=== PATIENT | female | born 1960 | race African-American/Black ===

== ENCOUNTER 2019-06-10 15:34 | Emergency (ER) | payer MEDICARE ==
[2019-06-10 16:24] LABS: ABSOLUTE BASOPHILS # (AUTO) 0.1 10^3/uL (0.0-0.2); ABSOLUTE EOSINOPHILS # (AUTO) 0.2 10^3/uL (0.0-0.6); ABSOLUTE MONOCYTES (AUTO) 1.1 10^3/uL (0.1-1.4); ABSOLUTE NEUT (AUTO) 8.2 10^3/uL (1.7-8.2); BASOPHILS % (AUTO) 0.7 % (0-2); EOSINOPHILS % (AUTO) 1.3 % (0-6); HEMATOCRIT 42.1 % (36.0-47.0); HEMOGLOBIN 14.5 g/dL (12.0-15.5); LYMPHOCYTES % (AUTO) 17.1 % (13-45); MEAN CORPUSCULAR HGB CONC 34.5 g/dL (32.0-36.0); MEAN CORPUSCULAR VOLUME 87 fl (80-97); MONOCYTES % (AUTO) 9.4 % (3-13); PLATELET COUNT 353 10^3/uL (150-450); RED BLOOD COUNT 4.85 10^6/uL (3.72-5.28); RED CELL DISTRIBUTION WIDTH 13.7 % (11.5-14.0); SEGMENTED NEUTROPHILS % (AUTO) 71.5 % (42-78); TOTAL CELLS COUNTED % (AUTO) 100 %; WHITE BLOOD COUNT 11.5 10^3/uL (4.0-10.5)
[2019-06-10 16:29] LABS: APPEARANCE,URINE CLEAR; BILIRUBIN,URINE NEGATIVE (NEGATIVE); COLOR,URINE STRAW; GLUCOSE, URINE >=500 mg/dL (NEGATIVE); KETONES,URINE NEGATIVE (NEGATIVE); LEUKOCYTE ESTERASE,URINE NEGATIVE (NEGATIVE); NITRITE,URINE NEGATIVE (NEGATIVE); PROTEIN,URINE NEGATIVE (NEGATIVE); URINE SPECIFIC GRAVITY 1.024; UROBILINOGEN,URINE NEGATIVE mg/dL (<2.0)
[2019-06-10] MEDS ORDERED: OLANZAPINE INJ/PF 10 MG SDV IM ONE (16:29)
[2019-06-10] MEDS ORDERED: CLONIDINE 0.1 MG/24 HR PATCH.TDWK TD ONE (16:30)
[2019-06-10 16:41] LABS: ALBUMIN 4.6 g/dL (3.5-5.0); ALKALINE PHOSPHATASE 163 U/L (38-126); ANION GAP 17 (5-19); ASPARTATE AMINO TRANSFERASE 16 U/L (14-36); BILIRUBIN,DIRECT 0.2 mg/dL (0.0-0.4); BILIRUBIN,TOTAL 0.5 mg/dL (0.2-1.3); BLOOD UREA NITROGEN 15 mg/dL (7-20); CALCIUM 9.9 mg/dL (8.4-10.2); CARBON DIOXIDE 22 mmol/L (22-30); CHLORIDE 99 mmol/L (98-107); POTASSIUM 4.1 mmol/L (3.6-5.0); TOTAL PROTEIN 8.1 g/dL (6.3-8.2)
[2019-06-10 16:47] LABS: ACETAMINOPHEN < 10 ug/mL (10-30); ALCOHOL < 10 mg/dL (NONE DETECTED); GLUCOSE 473 mg/dL (75-110); SALICYLATE < 1.0 mg/dL (2.0-20.0)
[2019-06-10 16:50] LABS: URINE AMPHETAMINES SCREEN NEGATIVE; URINE BARBITURATES SCREEN NEGATIVE; URINE BENZODIAZEPINES SCREEN NEGATIVE; URINE COCAINE SCREEN NEGATIVE; URINE MARIJUANA (THC) SCREEN NEGATIVE; URINE METHADONE SCREEN NEGATIVE; URINE PHENCYCLIDINE SCREEN NEGATIVE
--- NOTE | 2019-06-10 16:53 | PSYCHOLOGICAL NOTE ---
Psych Note - Psych Note Date seen by psych provider: 06/10/19 Time seen by psych provider: 15:45 Psych Note: Medication recommendations per [facility]'s contracted psychitrist Dr Tresa TORRES are as follows Zyprexa 10mg IM once Zyprexa 5mg po twice daily Cogentin 1mg po daily Clonidine 0.1mg transdermal 24hr patch Impression/Plan: Patient is recommended to continue under IVC. She is currently manic with liable mood and affect. medication recommendations have been provid ed; patient will be re-evaluated. Dr. Ulrich was consulted on the care and management of this patient; attending physician is in agreement with recommendations and disposition.
[2019-06-10] MEDS ORDERED: INSULIN LISPRO 100 UNIT/ML 3 ML VIAL SUBCUT ONE (17:17)
--- NOTE | 2019-06-10 18:38 | EKG REPORT ---
SEVERITY:- ABNORMAL ECG - SINUS TACHYCARDIA PROBABLE LEFT ATRIAL ABNORMALITY LEFT ANTERIOR FASCICULAR BLOCK : Confirmed by: Darnell Raygoza MD 10-Jun-2019 18:38:27
[2019-06-10] MEDS ORDERED: METOPROLOL TARTRATE 50 MG TABLET PO ONE (21:05)
[2019-06-10] MEDS: OLANZAPINE 5 MG TABLET PO SCH (21:39)
[2019-06-10] MEDS: BENZTROPINE MESYLATE 1 MG TABLET PO SCH (21:40)
[2019-06-10] MEDS: METOPROLOL TARTRATE 50 MG TABLET PO SCH (21:41)
[2019-06-10] MEDS ORDERED: DEXTROSE 40% GEL 15 GM TUBE PO PRN ×2 (21:52)
[2019-06-10] MEDS ORDERED: GLUCAGON,HUMAN RECOMB 1 MG INJ IM PRN (21:52)
[2019-06-10] MEDS ORDERED: DEXTROSE 50%-WATER 25 GM/50 ML DISP.SYRIN IV PRN ×2 (21:52)
--- NOTE | 2019-06-10 23:11 | ER Document Report ---
ED General - General Chief Complaint: Psych Problem Stated Complaint: PSYCH Time Seen by Provider: 06/10/19 15:54 TRAVEL OUTSIDE OF THE [place] IN LAST 30 DAYS: No - HPI Notes: Patient is a 59-year-old female brought to the emergency department for evaluation by [place] [employer]. Evidently they have an IVC order in place. She is known to them, has a history of schizoaffective disorder, was acting very agitated, and she was brought here for further evaluation. The patient will not offer me any meaningful history. She states to me that the police were "ordered to take her here by Beka Cormier." She states that this was all a conspiracy, she really does not want to see me, she would prefer to see someone who was black. She refuses to answer any further questions. Past Medical History - General Information source: Outside Facility Records - Social History Smoking Status: Unknown if Ever Smoked Family History: Other - Unobtainable - Past Medical History Cardiac Medical History: Reports: Hx Hypertension Endocrine Medical History: Reports: Hx Diabetes Mellitus Type 2, Hx Hypothyroidism Review of Systems - Review of Systems -: Yes ROS unobtainable due to patient's medical condition Physical Exam - Vital signs Vitals: Temp Pulse BP Pulse Ox 97.9 F 117 H 199/130 H 99 06/10/19 15:48 06/10/19 15:48 06/10/19 15:48 06/10/19 15:48 - Notes Notes: This is an extremely agitated 59-year-old female who appears her stated age. She is exhibiting flight of ideas, clearly hallucinating. She refuses to cooperate with examiner, will only answer limited amount of questions. Head is normocephalic and atraumatic, pupils are equal round, reactive to light. Onychosis moist. Heart is regular in rhythm, lungs are clear to auscultation bilaterally. Abdomen soft, nontender, normoactive bowel sounds. Skin is warm and dry. Patient is awake and alert. She refuses to answer any orientation questions. She is exhibiting extreme paranoia and agitation. Course - Re-evaluation Re-evalutation: 06/10/19 23:08 Patient presents emergency department for evaluation. She was initially evaluated here as an IVC. Unfortunately, she is not being very forthcoming with her history. There is no history on her in the computer. Eventually, we were contacted, notified that family had filed a missing persons report. Please see nursing notes in regards to details, but we were notified about some of the patient's medical problems. These included hypertension and diabetes. Because of her elevated heart rate, elevated blood pressure, and elevated blood glucose, I did order metoprolol to be taken twice a day, as well as insulin sliding scale and blood glucose checks. Still awaiting more concrete information in regards to medications, this should be forthcoming in the morning. Otherwise, patient is stable. She was administered Zyprexa and did have improvement. Currently, patient is resting. She is medically cleared for further psychosocial evaluation, which will hopefully be more constructive in the morning. - Vital Signs Vital signs: Temp Pulse Resp BP Pulse Ox 97.6 F 98 20 178/103 H 100 06/10/19 20:45 06/10/19 20:45 06/10/19 20:45 06/10/19 20:45 06/10/19 20:45 - Laboratory Result Diagrams: 06/10/19 16:00 06/10/19 16:00 Laboratory results interpreted by me: 06/10/19 06/10/19 06/10/19 15:40 16:00 16:00 WBC 11.5 H Glucose 473 H* POC Glucose Alkaline Phosphatase 163 H Urine Glucose (UA) >=500 H Salicylates < 1.0 L Acetaminophen < 10 L 06/10/19 20:50 WBC Glucose POC Glucose 300 H Alkaline Phosphatase Urine Glucose (UA) Salicylates Acetaminophen - EKG Interpretation by Me Additional EKG results interpreted by me: 06/10/19 23:10 Sinus tachycardia with rate of 102 bpm. Left axis deviation. Normal intervals. Left anterior fascicular block. No acute ST changes concerning for ischemia or infarction. No old studies available for comparison. Discharge - Discharge Clinical Impression: Involuntary commitment, Hyperglycemia Psychosis Qualifiers: Schizoaffective disorder type: unspecified Condition: Stable Disposition: OTHER
[2019-06-10] MEDS: INSULIN REG, HUMAN 100 UNIT/ML 3 ML VIAL (PYX) ONE ×2 (23:22→23:47)
[2019-06-10] MEDS ORDERED: INSULIN REG, HUMAN 100 UNIT/ML 3 ML VIAL (PYX) SUBCUT ONE (23:40)
[2019-06-11] MEDS ORDERED: LORAZEPAM INJ 2 MG/1 ML VIAL IM ONE (03:26)
--- NOTE | 2019-06-11 03:31 | ER Document Report ---
Doctor's Note Notes: 06/11/19 03:30 Patient very aggravated agitated alexx in the hallway. Attempted to return to the room she is very agitated. I have discussed the patient's assessment and history with Dr. Shearer who stated that with her Cogentin and Zyprexa it would be okay to give her 2 mg of Ativan IM now to help calm her down at this time. She will be evaluated by mental health in the morning and her medications reevaluated.
[2019-06-11] MEDS: INSULIN REG, HUMAN 100 UNIT/ML 3 ML VIAL (PYX) SUBCUT SCH ×4 (08:13→21:42)
[2019-06-11] MEDS: OLANZAPINE 5 MG TABLET PO SCH ×2 (10:00→21:41)
[2019-06-11] MEDS: METOPROLOL TARTRATE 50 MG TABLET PO SCH ×2 (10:00→21:41)
--- NOTE | 2019-06-11 11:40 | PSYCHOLOGICAL NOTE ---
Psych Note - Psych Note Date seen by psych provider: 06/11/19 Psych Note: Medication recommendations per [facility]'s contracted psychiatrist Dr Tresa TORRES are as follows Zyprexa 10mg IM once Zyprexa 5mg po twice daily Cogentin 1mg po daily Clonidine 0.1mg transdermal 24hr patch Impression/Plan: Patient is recommended to continue under IVC. She continues to present slightly manic with liable mood and affect. Patient's daughter reports the patient is possible baseline and just agitated because she is not in her home. Patient's daughter, whom lives in [place], plans to take off work and brain picker the patient tomorrow. Current plan of care is to continue medications for stabilization with probable discharge to her daughter to [place]. Dr. Ulrich was consulted on the care and management of this patient; attending physician is in agreement with recommendations and disposition.
--- NOTE | 2019-06-11 12:07 | ER Document Report ---
Doctor's Note Notes: 06/11/19 12:07 Chart reviewed patient rounded on patient resting in bed quietly until she was awakened for Accu-Chek. She then started saying that the Accu-Chek made her sleepy, was arguing with the nurse but the nurse was able to calm her down. Patient eating drinking voiding without complaints. PHYSICAL EXAMINATION: GENERAL: Well-appearing and in no acute distress HEAD: Atraumatic, normocephalic. ENT: nares patent,Moist mucous membranes. NECK: Normal range of motion, supple LUNGS: Respiratory rate even unlabored HEART: Regular rate EXTREMITIES: Normal range of motion NEUROLOGICAL: Cranial nerves grossly intact. PSYCH: Normal mood, normal affect. Irritates easily SKIN: Warm, Dry, 06/11/19 18:56 Patient remained calm for most of the day. She did talk to her daughter on the phone and was very coherent.
[2019-06-11] MEDS: BENZTROPINE MESYLATE 1 MG TABLET PO SCH (21:41)
--- NOTE | 2019-06-12 08:51 | PSYCHOLOGICAL NOTE ---
Psych Note - Psych Note Date seen by psych provider: 06/12/19 Time seen by psych provider: 08:00 Psych Note: Patient states she is feeling "fine." Patient reports no pressing issues or concerns, and is ready for discharge. Clinician notes patient presents as slightly manic with elated mood, pressured speech, and tangential thought processes. Patient states she was discharged from the hospital and attempted to go to [place], [place], but missed her exit and ended up in [place], [place]. Patient states her care is in the possession of [facility]. Medication recommendations per [facility]'s contracted psychiatrist Dr Tresa TORRES are as follows Zyprexa 5mg po twice daily Cogentin 1mg po daily Clonidine 0.1mg transdermal 24hr patch Impression/Plan: Patient is recommended to continue under IVC. Patient continues to present slightly manic with tangential though processes. Patient's daughter reports the patient is possible baseline and just agitated because she is not in her home. Patient has ACTT services in place. Patient's daughter, whom lives in [place], plans to take off work and brass pickler the patient tomorrow. Current plan of care is to continue medications for stabilization with probable discharge to her daughter later today. Dr. Ulrich was consulted on the care and management of this patient; attending physician is in agreement with recommendations and disposition.
[2019-06-12] MEDS: INSULIN REG, HUMAN 100 UNIT/ML 3 ML VIAL (PYX) SUBCUT SCH ×2 (09:13→11:57)
[2019-06-12] MEDS: METOPROLOL TARTRATE 50 MG TABLET PO SCH (09:20)
[2019-06-12] MEDS: OLANZAPINE 5 MG TABLET PO SCH (09:21)
[2019-06-12 12:35] VITALS: BP 111/71
--- NOTE | 2019-06-12 14:14 | ER Document Report ---
Doctor's Note Notes: 06/12/19 13:00 Patient has been eating well and tolerating her medications as prescribed. Patient is alert and oriented x4. Patient smiling and able to communicate appropriately. IVC was rescinded by my attending Dr. Espitia. Daughter at the bedside and will be discharged. We will continue prescriptions. Patient does have follow-up per mental health staff as well as the daughter. Patient's not tachycardic, febrile or hypertensive or hypotensive. Patient stable for discharge.
== END 2019-06-12 13:53 | disposition home or self-care (01) ==
LOC: ER 15:34
DX: F25.9 Schizoaffective disorder, unspecified (principal); E11.65 Type 2 diabetes mellitus with hyperglycemia; E03.9 Hypothyroidism, unspecified
CPT/HCPCS: 93005; 99285; 96372; 36415; 82962; 80307 ×4; 85025; 80053; 81001; 80164; 93010; A9270 ×9; J3490; J1815; J2060